=== PATIENT | female | born 1935 | race Two or more races ===

== ENCOUNTER 2021-09-17 18:26 | Emergency (ER) | payer MEDICARE ==
[~2021-09-17] VITALS: Ht 162.6 cm; Wt 72.6 kg
[2021-09-17] MEDS ORDERED: IV NS 0.9% 1,000 ML BAG IV ONE (18:30)
[2021-09-17 18:55] LABS: BASOPHILS % (AUTO) 0.4 % (0.0-2.0); EOSINOPHILS % (AUTO) 1.9 % (0.0-6.0); HEMATOCRIT 34 % (33-45); LYMPHOCYTES # (AUTO) 2.3 K/uL (0.8-4.8); LYMPHOCYTES % (AUTO) 25.2 % (20.0-44.0); MEAN CORPUSCULAR HGB CONC 32 g/dl (31.0-36.0); MEAN CORPUSCULAR VOLUME 82 fL (82-100); MONOCYTES # (AUTO) 0.7 K/uL (0.1-1.30); MONOCYTES % (AUTO) 7.6 % (2.0-12.0); NEUTROPHILS # (AUTO) 5.9 K/uL (1.8-8.9); NEUTROPHILS % (AUTO) 64.9 % (43.0-81.0); RED BLOOD CELL COUNT(AUTO) 4.12 MIL/uL (4.0-5.2); WHITE BLOOD COUNT (AUTO) 9.1 K/uL (4.3-11.0)
--- NOTE | 2021-09-17 19:02 | NUR ---
PT TAKEN TO CT
--- NOTE | 2021-09-17 19:12 | NUR ---
DR PITTMAN SPEAKING WITH NEURO DR BECKFORD
[2021-09-17] MEDS ORDERED: LEVETIRACETAM (500MG) 500 MG in IV NS 0.9% 100 ML IV STA (19:23)
--- NOTE | 2021-09-17 19:33 | NUR ---
COVID SWAB DONE AND SENT TO LAB
[2021-09-17 19:49] LABS: CALCIUM, SERUM 8.7 mg/dL (8.5-10.1); CARBON DIOXIDE 24 mmol/L (21-32); CHLORIDE 104 mmol/L (98-107); CREATININE 1.2 mg/dL (0.6-1.3); GLUCOSE 133 mg/dL (74-106); SODIUM SERUM 138 mmol/L (136-145); UREA NITROGEN, BLOOD 27 mg/dL (7-18)
--- NOTE | 2021-09-17 19:57 | NUR ---
ADDENDUM: Intravenous End Time Documentation: Rudyra 1 gram IVPB: start time:1956 pm ; end time:2056 pm : IV site: LAC PIV # 18 Port #1
[2021-09-17 19:59] LABS: PLATELET COUNT (AUTO) 278 K/uL (150-450)
--- NOTE | 2021-09-17 20:23 | NUR ---
[facility] FOR [facility] 10-15 MIN
--- NOTE | 2021-09-17 20:23 | NUR ---
[facility] CALLED TO GETTING TRANSFER INFOR FOR PT.
[2021-09-17 20:25] VITALS: BP 111/60
--- NOTE | 2021-09-17 20:45 | NUR ---
ROOM [id number] REPORT: [phone]
--- NOTE | 2021-09-17 20:55 | NUR ---
transport at bedside
--- NOTE | 2021-09-17 21:00 | NUR ---
REPORT GIVEN TO [facility]
== END 2021-09-17 21:08 | disposition short-term general hospital (02) ==
LOC: ER 18:36
DX: I61.8 Other nontraumatic intracerebral hemorrhage (principal); J98.11 Atelectasis; Z20.822 Contact with and (suspected) exposure to COVID-19; Z86.73 Personal history of transient ischemic attack (TIA), and cerebral infarction without residual deficits; E78.5 Hyperlipidemia, unspecified
CPT/HCPCS: 36415; 70450; 71045; 80048; 82962; 83880; 84484; 85025; 85730; 87426; 93005; 96365; 99291; 99292; J1953; J7030 ×2; C9803